=== PATIENT | female | born 1965 | race African-American/Black ===

== ENCOUNTER 2017-08-18 19:31 | Inpatient (IN) | payer MEDICARE ==
[~2017-08-18] VITALS: Ht 152.4 cm; Wt 53.1 kg
[~2017-08-18 19:31] MED LIST: ALBUTEROL0.63 MG/3; ASPIRIN EC81 MG PO; FAMOTIDINE20 MG PO; KEFLEX500 MG PO; LISINOPRIL10 MG PO; LOSARTAN POTAS100 MG PO; MEG40 PO; METOPROLOL SUCC25 MG PO; NORCO 10-325 T1 EACH; NORCO 7.5-3251 EACH PO; PREDNISONE10 MG PO; PREDNISONE20 MG PO; PROPRANOLOL HCL40 MG PO; SOMA350 MG PO; ULTRAM 50MG50 MG PO; ULTRAM50 MG PO
[2017-08-18] MEDS ORDERED: ONDANSETRON HCL INJ 2 MG/ML VIAL IV STA (20:16)
[2017-08-18] MEDS ORDERED: PANTOPRAZOLE 40 MG 10ML VIAL IV STA (20:16)
[2017-08-18] MEDS ORDERED: SODIUM CHLORIDE 0.9% 1000ML 1,000 ML IV STA (20:16)
[2017-08-18 20:53] LABS: INR 0.89; PROTHROMBIN TIME 12.5 seconds (11.9-14.5)
[2017-08-18 20:54] LABS: PARTIAL THROMBOPLASTIN TIME 28.2 seconds (23.8-35.5)
[2017-08-18 21:12] LABS: BILIRUBIN,URINE 1+ (NEGATIVE); KETONES,URINE 3+ (NEGATIVE); LEUKOCYTE ESTERASE ,URINE TRACE (NEGATIVE); NITRITE,URINE NEGATIVE (NEGATIVE); PROTEIN,URINE DIPSTICK 3+ (NEGATIVE); URINE UROBILINOGEN 1 mg/dL (0.2 - 1)
[2017-08-18 21:16] LABS: CLARITY,URINE CLOUDY (CLEAR); COLOR,URINE YELLOW (YELLOW)
[2017-08-18 21:17] LABS: THYROID STIMULATING HORMONE 1.213 uIU/mL (0.350-4.940)
[2017-08-18 21:22] LABS: BASOPHILS % 0.5 % (0.0-1.0); HEMATOCRIT 34.4 % (34.2-44.1); HEMOGLOBIN 10.5 g/dL (12.0-16.0); LYMPHOCYTES % 24.4 % (18.0-39.1); MEAN CORPUSCULAR HEMOGLOBIN 28.2 pg (28-32); MEAN CORPUSCULAR HGB CONC 30.5 g/dL (31-35); MEAN CORPUSCULAR VOLUME 92.5 fL (81-99); MONOCYTES # (AUTO) 0.3 (0.2-0.8); MONOCYTES % 5.9 % (4.4-11.3); NEUTROPHILS # (AUTO) 2.9 (2.1-6.9); NEUTROPHILS % 68.5 % (38.7-80.0); PLATELET COUNT 335 x10e3/uL (140-360); RED BLOOD COUNT 3.72 x10e6/uL (3.6-5.1); RED CELL DISTRIBUTION WIDTH 15.1 % (11.7-14.4)
--- NOTE | 2017-08-18 21:25 | Diagnostic Imaging Report ---
EXAM: CT ABDOMEN AND PELVIS without IV CONTRAST DATE: 08/18/2017 8:16 PM Time stamp on Exam: 2040 hours INDICATION: Lower back pain, bilateral flank pain COMPARISON: CT of the chest November 20, 2016. TECHNIQUE: The abdomen and pelvis were scanned using a multidetector helical scanner. Coronal and sagittal reformations were obtained. Renal stone protocol performed. IV Contrast: None Oral Contrast: None CTDIvol has been reviewed. It is below the limits set by the Radiation Protocol Committee (RPC). FINDINGS: LOWER THORAX: No consolidations LIVER: No masses BILIARY: The gallbladder is unremarkable. No ductal dilation. SPLEEN: No masses PANCREAS: No masses ADRENALS: No nodules RIGHT KIDNEY: No nephroureterolithiasis or hydronephrosis. LEFT KIDNEY: No nephroureterolithiasis or hydronephrosis. GI TRACT: No distention, wall thickening or evidence of obstruction. Normal appendix. VESSELS: Mild atherosclerotic changes without aneurysm. PERITONEUM/RETROPERITONEUM: No free air or fluid LYMPH NODES: Nonspecific subcentimeter retroperitoneal lymph nodes, predominantly on the left at the level of the kidney, nonspecific and partially visualized on prior CT of the chest. REPRODUCTIVE ORGANS: Unremarkable BLADDER: Collapsed SOFT TISSUES: Unremarkable BONES: No suspicious bone lesions. IMPRESSION: No nephroureterolithiasis or hydronephrosis. Signed by: Dr. Saumya Matute M.D. on 08/18/2017 9:21 PM
--- NOTE | 2017-08-18 21:26 | Diagnostic Imaging Report ---
EXAM: CHEST SINGLE (PORTABLE), AP 1 view DATE: 08/18/2017 8:16 PM Time stamp on exam: 2015 hours INDICATION: Chest pain COMPARISON: AP view of the chest study were 14/06/2015 FINDINGS: LINES/TUBES: None LUNGS: Linear scarring left lung base. PLEURA: No effusions or pneumothorax. HEART AND MEDIASTINUM: Normal size and contour. BONES AND SOFT TISSUES: No acute findings. IMPRESSION: No acute thoracic abnormality. Signed by: Dr. Saumya Matute M.D. on 08/18/2017 9:23 PM
[2017-08-18 21:34] LABS: EPITHELIAL CELLS,URINE MANY /LPF
[2017-08-18 21:35] LABS: BACTERIA,URINE MODERATE /HPF; RBC,URINE >50 /HPF (0-5); WBC,URINE (MAN) 21-50 /HPF (0-5)
[2017-08-18 21:44] LABS: ALANINE AMINOTRANSFERASE 8 IU/L (0-55); ALBUMIN/GLOBULIN RATIO 0.3 (0.8-2.0); ALKALINE PHOSPHATASE 69 IU/L (40-150); ANION GAP 23.7 mmol/L (8-16); BLOOD UREA NITROGEN 16 mg/dL (7-26); BUN/CREATININE RATIO 15 (6-25); CARBON DIOXIDE 20 mmol/L (22-29); CHLORIDE 101 mmol/L (98-107); CREATINE KINASE 17 IU/L (29-168); CREATININE, SERUM 1.09 mg/dL (0.57-1.11); EST GLOMERULAR FILTRATION RATE > 60 ML/MIN (60-); GLUCOSE 72 mg/dL (74-118); LIPASE 22 U/L (8-78); MAGNESIUM 1.4 MG/DL (1.3-2.1); POTASSIUM 3.7 mmol/L (3.5-5.1); SODIUM 141 mmol/L (136-145)
[2017-08-18 22:18] LABS: BAND NEUTROPHILS % (MANUAL) 1 %; LYMPHOCYTES % (MANUAL) 29 % (19-48); MONOCYTES % (MANUAL) 7 % (3.4-9.0); NEUTROPHILS % (MANUAL) 62 % (40-74)
[2017-08-18 22:19] LABS: PLATELET ESTIMATE ADEQUATE; PLATELET MORPHOLOGY COMMENT NORMAL; RBC MORPHOLOGY COMMENT NORMAL
[2017-08-18 23:27] LABS: BILIRUBIN,URINE NEGATIVE (NEGATIVE); CLARITY,URINE CLOUDY (CLEAR); COLOR,URINE YELLOW (YELLOW); KETONES,URINE 2+ (NEGATIVE); LEUKOCYTE ESTERASE ,URINE NEGATIVE (NEGATIVE); NITRITE,URINE NEGATIVE (NEGATIVE); PROTEIN,URINE DIPSTICK 3+ (NEGATIVE); URINE UROBILINOGEN 0.2 mg/dL (0.2 - 1)
[2017-08-18] MEDS: CEFTRIAXONE SOD 1 GM/NS 50 ML 50 ML IV SCH (23:33)
[2017-08-18] MEDS: DEXTROSE 5%/0.9% SOD CHL 1,000 ML IV SCH (23:33)
[2017-08-18 23:41] LABS: AMORPHOUS SEDIMENT,URINE MODERATE (FEW); BACTERIA,URINE MODERATE /HPF; EPITHELIAL CELLS,URINE FEW /LPF; HYALINE CASTS 0-1 (0-1); RBC,URINE >50 /HPF (0-5); WBC,URINE (MAN) 21-50 /HPF (0-5)
[2017-08-18] MEDS ORDERED: NITROFURANTOIN100 MG PO (23:57)
[2017-08-18] MEDS ORDERED: METOPROLOL TART25 MG PO (23:57)
[2017-08-18] MEDS ORDERED: ZOFRAN ODT4 MG PO (23:57)
[2017-08-18] MEDS ORDERED: ULTRAM50 MG PO (23:57)
[2017-08-19] VITALS (7 sets, daily range): BP systolic 105–131; BP diastolic 56–78
[2017-08-19] MEDS: HYDROMORPHONE 1MG/1ML INJ IV PRN ×4 (03:00→20:42)
[2017-08-19] MEDS: ONDANSETRON HCL INJ 2 MG/ML VIAL IV PRN ×4 (03:00→20:42)
[2017-08-19 06:46] LABS: BASOPHILS % 0.2 % (0.0-1.0); HEMATOCRIT 28.5 % (34.2-44.1); HEMOGLOBIN 8.7 g/dL (12.0-16.0); LYMPHOCYTES # (AUTO) 1.1 (1.0-3.2); LYMPHOCYTES % 26.1 % (18.0-39.1); MEAN CORPUSCULAR HEMOGLOBIN 28.5 pg (28-32); MEAN CORPUSCULAR HGB CONC 30.5 g/dL (31-35); MEAN CORPUSCULAR VOLUME 93.4 fL (81-99); MONOCYTES # (AUTO) 0.3 (0.2-0.8); MONOCYTES % 6.5 % (4.4-11.3); NEUTROPHILS # (AUTO) 2.7 (2.1-6.9); NEUTROPHILS % 66.7 % (38.7-80.0); PLATELET COUNT 290 x10e3/uL (140-360); RED BLOOD COUNT 3.05 x10e6/uL (3.6-5.1)
[2017-08-19] MEDS: DEXTROSE 5%/0.9% SOD CHL 1,000 ML IV SCH ×3 (07:00→20:41)
[2017-08-19 07:13] LABS: ALANINE AMINOTRANSFERASE 7 IU/L (0-55); ALBUMIN 1.7 g/dL (3.5-5.0); ALBUMIN/GLOBULIN RATIO 0.3 (0.8-2.0); ALKALINE PHOSPHATASE 54 IU/L (40-150); ANION GAP 12.9 mmol/L (8-16); BLOOD UREA NITROGEN 13 mg/dL (7-26); BUN/CREATININE RATIO 15 (6-25); CALCIUM 8.1 mg/dL (8.4-10.2); CARBON DIOXIDE 25 mmol/L (22-29); CHLORIDE 109 mmol/L (98-107); CREATINE KINASE 35 IU/L (29-168); CREATININE, SERUM 0.87 mg/dL (0.57-1.11); EST GLOMERULAR FILTRATION RATE > 60 ML/MIN (60-); GLUCOSE 116 mg/dL (74-118); POTASSIUM 3.9 mmol/L (3.5-5.1); SODIUM 143 mmol/L (136-145)
[2017-08-19] MEDS: CEFTRIAXONE SOD 1 GM/NS 50 ML 50 ML IV SCH (07:46)
[2017-08-19 07:53] LABS: CREATINE KINASE MB < 1.00 ng/mL (0-4.3); TROPONIN I < 0.05 ng/mL (0.0-0.40)
[2017-08-19 07:59] LABS: BAND NEUTROPHILS % (MANUAL) 4 %; LYMPHOCYTES % (MANUAL) 13 % (19-48); MONOCYTES % (MANUAL) 5 % (3.4-9.0); NEUTROPHILS % (MANUAL) 74 % (40-74)
[2017-08-19 08:00] LABS: ANISOCYTOSIS SLIGHT; HYPOCHROMASIA SLIGHT
[2017-08-19 08:01] LABS: PLATELET ESTIMATE ADEQUATE; PLATELET MORPHOLOGY COMMENT NORMAL; POIKILOCYTOSIS SLIGHT; RBC MORPHOLOGY COMMENT NORMAL
[2017-08-19] MEDS ORDERED: ONDANSETRON HCL 4 MG ORAL DISINTEGRATING TAB PO PRN (09:30)
--- NOTE | 2017-08-19 09:44 | Discharge Summary ---
NO DICTATION, LENGTH 0:1 Job#: [id number] RI
--- NOTE | 2017-08-19 10:02 | History and Physical ---
CHIEF COMPLAINT: Fever and sepsis. HISTORY: The patient is a 51-year-old female with lupus, pericarditis and previous chest discomfort, pleurisy and also has rheumatoid arthritis, on prednisone, and immunosuppressed. Had coronary stent placement a few years ago in 2009 and hypertension. The patient came in with fever and recurrent urinary tract infection. The patient also complained of increasing shortness of breath as well. She is stating that she is having symptoms going on for the past few days without any relief. The patient also has nausea and vomiting, and rapid heart rate. She was placed on antibiotics and admitted to the hospital for further evaluation. PAST MEDICAL HISTORY: Includes rheumatoid arthritis, lupus, previous pericarditis, lupus arthritis, recurrent urinary tract infection, immunosuppressed, coronary disease with previous stent in 2009, hypertension, chronic anemia. D and C. SOCIAL HISTORY: The patient does not smoke. She quit smoking in 2014. No alcohol consumption. ALLERGIES: MORPHINE. HOME MEDICATIONS: List is reviewed. REVIEW OF SYSTEMS: Increasing shortness of breath, abdominal pain, and epigastric discomfort. PHYSICAL EXAMINATION VITAL SIGNS: Temperature is 100.7, blood pressure 124/60, pulse rate 103, respirations 20. GENERAL: The patient is not in acute distress. She is awake. HEENT: Normocephalic, atraumatic and anicteric. NECK: Supple grossly. PULMONARY: Diminished breath sounds. CARDIOVASCULAR: Tachycardia. ABDOMEN: Soft. Tenderness. No distention. EXTREMITIES: No cyanosis or edema. NEUROLOGIC: No focal deficit. LABORATORY: Sodium is 141, potassium 3.7, chloride 101, bicarb 20, BUN 16, creatinine 1.09, glucose is 72. WBC is 4.2, hemoglobin 10.5 down to 8.7 with rehydration, and platelets are 290,000, and hematocrit is 28.5. Urinalysis with wbcs in the urine of 50, greater than 50 rbcs, trace leukocyte esterase, moderate bacteria. Cloudy urine. IMAGING: CT of the abdomen and pelvis with IV contrast showed no hydronephrosis. IMPRESSION 1. Sepsis without shock. 2. Urinary tract infection. 3. Immunosuppressed with lupus, on immunosuppressed medication. 4. Rheumatoid arthritis. PLAN: IV fluids. Consultation with Dr. Us. IV antibiotics. Obtain a CT of the chest with IV contrast to check for PE. Will continue with home medications. Will continue with pain medication. DVT prophylaxis. Stool for occult. Job#: [id number] RI
[2017-08-19] MEDS: METOPROLOL TARTRATE 25 MG TAB PO SCH (11:04)
[2017-08-19] MEDS: CARISOPRODOL 350 MG TAB PO PRN (11:04)
[2017-08-19] MEDS: TRAMADOL HCL 50 MG TAB PO PRN (11:04)
[2017-08-19] MEDS: CEFEPIME 1GM/NS 0.9% 50 ML 50 ML IV SCH ×2 (11:04→22:15)
[2017-08-19] MEDS ORDERED: IOPAMIDOL 370 MG/ML 200 ML INFUS..BTL INJ ONE (15:17)
[2017-08-19] MEDS ORDERED: SODIUM CHLORIDE 0.9% 50ML 50 ML ONE (15:17)
[2017-08-19 15:57] LABS: CREATINE KINASE MB 0.4 ng/mL (0.00-5.00); TROPONIN I 0.029 ng/mL (0-0.300)
[2017-08-19] MEDS: FAMOTIDINE 20 MG TAB PO SCH (16:49)
--- NOTE | 2017-08-19 17:20 | Consultation ---
DATE OF CONSULTATION: August 19, 2017 INFECTIOUS DISEASE CONSULTATION REASON FOR CONSULTATION: Abdominal pain, fever and chills. HISTORY OF PRESENT ILLNESS: This patient, who is a 51-year-old female, history of lupus, history of pericarditis, history of pleurisy and rheumatoid arthritis, is on prednisone, had coronary artery stent placement a few years ago, history of hypertension. Comes in with fever, chills, abdominal pain. She has history of UTI. The patient says she has not been feeling well for the last few days with abdominal pain diffuse, feverish, some urgency. The patient was admitted. She said she is feeling slightly better, but she continues to feel bad in general. PAST MEDICAL HISTORY: Rheumatoid arthritis, lupus, pericarditis, recurrent UTI, immunosuppression, coronary artery disease status post stent, hypertension, chronic anemia. PAST SURGICAL HISTORY: Cardiac stent, D\T\C. ALLERGIES: NKA. SOCIAL HISTORY: There is no smoking, drug abuse, alcohol abuse. FAMILY HISTORY: Hypertension. REVIEW OF SYSTEMS: HEENT: There is no headache or visual changes. GI: There is nausea and abdominal pain but no diarrhea. JOINTS: There is no acute pain in her joints. : There is no urgency or frequency at the present time although she says there was some before she came, and she says her urine was dark. LABORATORY DATA: White count 4.02, hemoglobin 8.7. Sodium 143, potassium 3.9, creatinine 0.87. Blood cultures, urine cultures still pending. CAT scan of the abdomen and pelvis was done, showed no nephrolithiasis. IMPRESSION: Fever, chills in a patient immunocompromised. CT does not show hydronephrosis. She is currently on cefepime. It could be UTI. Will see how does she do with that. Await blood cultures, urine cultures. Other possibilities for her fever could be if her lupus is acting up, but I think we need to rule out an infection at the present time. Will follow with you. Thank you for asking me to see this patient. Job#: [id number] EV
--- NOTE | 2017-08-19 17:46 | Diagnostic Imaging Report ---
EXAM: CT Chest WITH contrast 08/19/2017 9:29 AM INDICATION: Chest pain. COMPARISON: 11/22/2016. TECHNIQUE: Chest was scanned utilizing a multidetector helical scanner from the lung apex through the level of the adrenal glands without administration of IV contrast. Coronal and sagittal reformations were obtained. Routine protocol was performed. IV CONTRAST: 100 mL of Isovue-370. RADIATION DOSE: Total DLP: 362.92 mGy*cm Estimated effective dose: (DLP x 0.014 x size factor) mSv COMPLICATIONS: None FINDINGS: LINES/ TUBES: None. LUNGS AND AIRWAYS: Bilateral upper lobe paraseptal emphysematous changes again observed. Punctate subpleural noncalcified nodule in the right middle lobe laterally on image 47 series 3, unchanged. Punctate noncalcified subpleural nodule in the posterior right lower lobe on image 59, unchanged. Posterior lower lobe irregular pleural parenchymal densities again observed, suggestive of pleural parenchymal scarring. No focal consolidation or masses.. PLEURA: Mild biapical pleural-parenchymal scarring. No pleural effusion or pneumothorax. HEART AND MEDIASTINUM: The thyroid gland is normal. Mildly enlarged bilateral axillary lymph nodes again observed, the largest on the right measuring 1.2 cm in short axis on image 40 series 2, unchanged. There are also mildly enlarged subcarinal lymph nodes, the largest measuring 1.9 x 1.4 cm on image 43 series 2, also unchanged. The heart is moderately enlarged. There is no pericardial effusion. UPPER ABDOMEN: Limited non-contrast views of the upper abdomen show multiple punctate splenic granulomata. Mildly prominent gastrohepatic lymph nodes again observed, the largest measuring 0.6 cm in short axis on image 106 series 2. Small low-attenuation lesion in the right hepatic lobe measures 0.5 cm on image 109, suggestive of a small cyst. Mild atherosclerotic changes of the visualized proximal abdominal aorta. The adrenal glands are normal. BONES: No acute osseous abnormality. SOFT TISSUES: Unremarkable. IMPRESSION: 1. Cardiomegaly. No acute thoracic abnormality. 2. Bilateral upper lobe paraseptal emphysematous changes, stable. 3. Mild bilateral axillary and mediastinal lymphadenopathy, unchanged. Signed by: Dr. Ayala Townsend M.D. on 08/19/2017 5:43 PM
[2017-08-20] VITALS: BP 106/51
[2017-08-20] MEDS: CARISOPRODOL 350 MG TAB PO PRN (00:22)
[2017-08-20] MEDS: TRAMADOL HCL 50 MG TAB PO PRN (00:22)
[2017-08-20 04:00] VITALS: BP 115/57
[2017-08-20] MEDS: HYDROMORPHONE 1MG/1ML INJ IV PRN (06:35)
[2017-08-20] MEDS: ONDANSETRON HCL INJ 2 MG/ML VIAL IV PRN ×2 (06:35→15:52)
[2017-08-20 06:56] LABS: BASOPHILS % 0.3 % (0.0-1.0); HEMATOCRIT 26.2 % (34.2-44.1); HEMOGLOBIN 8.2 g/dL (12.0-16.0); LYMPHOCYTES # (AUTO) 0.8 (1.0-3.2); LYMPHOCYTES % 26.3 % (18.0-39.1); MEAN CORPUSCULAR HEMOGLOBIN 29.2 pg (28-32); MEAN CORPUSCULAR HGB CONC 31.3 g/dL (31-35); MEAN CORPUSCULAR VOLUME 93.2 fL (81-99); MONOCYTES # (AUTO) 0.2 (0.2-0.8); MONOCYTES % 6.5 % (4.4-11.3); NEUTROPHILS # (AUTO) 2.1 (2.1-6.9); NEUTROPHILS % 66.6 % (38.7-80.0); PLATELET COUNT 246 x10e3/uL (140-360); RED BLOOD COUNT 2.81 x10e6/uL (3.6-5.1); RED CELL DISTRIBUTION WIDTH 15.3 % (11.7-14.4)
[2017-08-20] MEDS: DEXTROSE 5%/0.9% SOD CHL 1,000 ML IV SCH ×2 (07:00→10:25)
[2017-08-20 07:19] LABS: % IRON SATURATION 12 % (15-50); ALANINE AMINOTRANSFERASE < 6 IU/L (0-55); ALBUMIN 1.4 g/dL (3.5-5.0); ALBUMIN/GLOBULIN RATIO 0.3 (0.8-2.0); ALKALINE PHOSPHATASE 49 IU/L (40-150); ANION GAP 9.3 mmol/L (8-16); BLOOD UREA NITROGEN 6 mg/dL (7-26); BUN/CREATININE RATIO 9 (6-25); CALCIUM 7.9 mg/dL (8.4-10.2); CARBON DIOXIDE 26 mmol/L (22-29); CHLORIDE 111 mmol/L (98-107); EST GLOMERULAR FILTRATION RATE > 60 ML/MIN (60-); GLUCOSE 105 mg/dL (74-118); IRON 17 ug/dL (50-170); POTASSIUM 3.3 mmol/L (3.5-5.1); SODIUM 143 mmol/L (136-145); TOTAL IRON BINDING CAPACITY 140 ug/dL (261-478); TRANSFERRIN 100 mg/dL (180-382)
[2017-08-20 07:39] LABS: THYROID STIMULATING HORMONE 1.038 uIU/mL (0.350-4.940)
[2017-08-20 07:49] VITALS: BP 111/64
[2017-08-20 08:15] LABS: ANISOCYTOSIS SLIGHT; HYPOCHROMASIA SLIGHT; LYMPHOCYTES % (MANUAL) 23 % (19-48); MONOCYTES % (MANUAL) 7 % (3.4-9.0); NEUTROPHILS % (MANUAL) 68 % (40-74); PLATELET ESTIMATE ADEQUATE; PLATELET MORPHOLOGY COMMENT FEW LARGE; RBC MORPHOLOGY COMMENT NORMAL
[2017-08-20] MEDS: FAMOTIDINE 20 MG TAB PO SCH ×2 (08:22→16:38)
[2017-08-20] MEDS: METOPROLOL TARTRATE 25 MG TAB PO SCH (08:22)
[2017-08-20] MEDS ORDERED: POTASSIUM CHLORIDE 20 MEQ TAB CR PO NR (10:30)
--- NOTE | 2017-08-20 10:51 | Consultation ---
DATE OF CONSULTATION: August 20, 2017 CLINICAL HISTORY: This is a 51-year-old black woman known to me from previous evaluation. Referred by Dr. Demetrio Hawkins for evaluation of recurrent pleuritic chest pains. This patient suffers from systemic lupus and rheumatoid arthritis, chronically treated with prednisone. She has recurrent urinary tract infections. Was treated in [place] on multiple occasions, including once 2 months ago when she became weak in a store and was hospitalized there. Apparently, she was discharged with the diagnosis of urinary tract infection. She has difficulty with transportation, and has had trouble making her office appointments. Over the past 1-1/2 weeks, she has had a low-grade temperature, nausea and vomiting. Eventually, decided to come to our emergency room where she was again hospitalized with the diagnosis of urinary tract infection. Culture thus far has been negative. She admits to pleuritic pains. On examination, she has epigastric tenderness. PAST MEDICAL HISTORY: Remarkable for hypertension, diminished TSH and elevated D-dimer. PERSONAL/SOCIAL HISTORY: She was a long time cigarette smoker. Stopped smoking approximately in 2015. Drinks occasionally. Used to work in a [email or web address]. Has not worked for the past 18 years due to lupus disability and since the of her daughter. FAMILY HISTORY: Father from prostate cancer. Mother from a motor vehicle accident and pneumonia. Brother from myocardial infarction. Sister from lung cancer. Three brothers alive and well with hypertension. PAST SURGICAL HISTORY: Oral surgery, D and C are, as well as coronary stenting. MEDICATIONS: In the past included prednisone, Plaquenil, lisinopril, tramadol, Soma, and hydrocodone. REVIEW OF SYSTEMS: Noncontributory. PHYSICAL EXAMINATION GENERAL: She is thin, alert and coherent. Older than her stated age. VITALS: Otherwise normal. CARDIAC: Jugular veins were not distended. S1 and S2 were regular. There is no appreciable murmur. LUNGS: Clear. ABDOMEN: Soft. Bowel sounds are present. There is significant tenderness. No rebound or guarding. EXTREMITIES: Show no cyanosis, clubbing or edema. LABORATORY STUDIES: The sodium is 143, potassium 3.3, chloride 111, bicarb 26, BUN 6, creatinine 0.7, glucose 105. White count is 3000, hemoglobin 8.2 and platelet count 246,000. INR is 0.89. IMPRESSION 1. Pleuritic chest and abdominal pains: Consider pleural pericarditis, as well as cholelithiasis and cholecystitis. 2. Chronic pain with chronic pain medication usage. 3. History of coronary artery disease with coronary stents. 4. History of resting tachycardia with diminished TSH. 5. History of recurrent urinary tract infection. 6. Systemic lupus rheumatoid arthritis, previously on prednisone and Plaquenil. 7. History of chronic hypotension. 8. Anemia: Hemoglobin 8.2. 9. History of cigarette smoking, possible underlying chronic obstructive pulmonary disease. 10. Moderately severe tricuspid regurgitation with mild pulmonary hypertension: Pulmonary artery systolic pressure in the range of 42 mmHg. 11. History of preserved left ventricular function: Ejection fraction in the range of 70%. RECOMMENDATIONS: Review echocardiogram. Apparently, has already been done. Symptomatic management. Consider gallbladder workup. Job#: [id number] RI cc:MD JOE HE MD
[2017-08-20] MEDS: CEFTRIAXONE SOD 1 GM/NS 50 ML 50 ML IV SCH (10:54)
[2017-08-20] MEDS ORDERED: SINCALIDE 3 MCG/VIAL INJ ONE (11:18)
[2017-08-20 11:24] LABS: FOLATE 16.6 ng/mL (7.0-15.4)
[2017-08-20 11:29] VITALS: BP 133/75
[2017-08-20 16:10] VITALS: BP 142/67
[2017-08-20] MEDS: METHYLPREDNISOLONE SOD SUCC 40 MG/ML VIAL IV SCH (16:38)
[2017-08-20] MEDS: VANCOMYCIN 1GM/NS 250 ML 250 ML IV SCH (16:38)
--- NOTE | 2017-08-20 17:35 | Consultation ---
DATE OF CONSULTATION: August 20, 2017 Amber Abbott is a 51-year-old black female referred to me for evaluation of anemia. No history of hematochezia, melena, hematuria, hematochezia or hemoptysis. HISTORY OF PAST ILLNESSES: History of systemic lupus erythematosus. History of rheumatoid arthritis. History of recurrent UTI. History of hypertension. History of chronic pain syndrome. History of coronary artery disease with stenting. History of COPD. SOCIAL HISTORY: History of smoking in the past. FAMILY HISTORY: Noncontributory, except for the father who of prostate cancer. ALLERGIES: REPORTED NONE. MEDICATIONS: At this time. 1. Cefepime. 2. Ceftriaxone. 3. Vancomycin. 4. Soma. 5. Pepcid. 6. Hydromorphone. 7. Methylprednisolone. 8. Metoprolol. 9. Ondansetron. 10. Potassium. 11. Tramadol. REVIEW OF SYSTEMS: HEENT: Normal. CARDIAC: History of hypertension. History of coronary stenting. RESPIRATORY: History of COPD. GI: Normal. : Multiple bladder infections. MUSCULOSKELETAL: History of rheumatoid arthritis, history of systemic lupus erythematosus. NEUROENDOCRINE: Essentially normal. PHYSICAL EXAMINATION: GENERAL: Moderately built female, very anemic. NECK: No palpable adenopathy. HEART: Within normal limits. LUNGS: Show diminished breath sounds throughout. ABDOMEN: Obese. No hepatosplenomegaly. RECTA AND VAGINAL EXAM: Deferred. CENTRAL NERVOUS SYSTEM: Essentially normal. EXTREMITIES: Shows rheumatoid arthritis features. LABORATORY DATA: CBC on 08/18 showed a hemoglobin of 10.5, white count of 4200, platelets 335,000. Hemoglobin after hydration dropped on 08/19 to 8.7, today is 8.2 with a white count of 3000 and platelets of 246,000. MCV normal at 93.2. MCHC normal at 31.3. RDW slightly high at 15.3. Chemistry shows a sodium of 141, potassium 3.7, chloride 101, CO2 20. BUN 16, creatinine 1.0, glucose 72, calcium 9.0. Total protein 8.3. Albumin 2.0. Globulin is high at 6.3; however, after hydration the total protein dropped down to 6.1, albumin to 1.4, globulin 4.7. B12 level more than 2000. The potassium today is 3.3. IMAGING: The patient had a CT of the chest which showed the patient to have cardiomegaly, bilateral upper lobe emphysema, mild bilateral axillary and mediastinal adenopathy which is unchanged from 11/22/2016. CT of the abdomen is also reported essentially negative. I IMPRESSION: 1. History of systemic lupus erythematosus. 2. History of rheumatoid arthritis. 3. History of recurrent urinary tract infections. 4. Hypertension. 5. Chronic pain syndrome. 6. Coronary artery disease with stenting. 7. Chronic obstructive pulmonary disease. 8. History of pulmonary hypertension. 9. Tricuspid regurgitation, according to the notes of Dr. Carson White. 10. Anemia of chronic disease. 11. Neutropenia. 12. Hypokalemia. 13. Hypoproteinemia. 14. Hypoalbuminemia. 15. 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 16. Active urinary tract infection at the present time. PLAN, COMMENTS AND SUGGESTIONS: Suggest quantitation of immunoglobulins; however, I suspect this is going to be polyclonal gammopathy because of both rheumatoid arthritis and also because of the systemic lupus erythematosus. I will confine myself to hematology. Blood transfusion if the hemoglobin drops down to 7 since this is anemia of chronic disease. Thank you very much for allowing me to participate in management of this patient. Job#: [id number] cc:NIESHA LOUISE MD cc:JOE ESPINOZA MD cc:CARSON WHITE MD
--- NOTE | 2017-08-20 18:26 | Diagnostic Imaging Report ---
Hepatobiliary Scan with Gallbladder Ejection Fraction Clinical information: 51 F with RUQ abdominal pain Report: Following intravenous administration of 6.5 millicuries of Tc-99m mebrofenin, dynamic images of the abdomen in the anterior projection were obtained through 40 minutes. Sincalide (CCK analog) 1.0 micrograms was administered intravenously over 30 minutes with additional imaging for determination of gallbladder ejection fraction. Perfusion to the liver is normal. Extraction of tracer from the blood pool by the liver parenchyma is normal. Tracer is seen promptly within the biliary tract. The gallbladder begins to fill by 35 minutes post-injection of tracer and fills adequately. Tracer is seen in the small bowel by 12 minutes. The gallbladder ejection fraction with administration of sincalide is 85% (normal greater than 40%). Impression: 1. Filling of the gallbladder excludes the diagnosis of acute cystic duct obstruction/acute cholecystitis. 2. Normal gallbladder ejection fraction of 85% does not support the clinical diagnosis of chronic cholecystitis/gallbladder dyskinesia. Signed by: Dr. Pat Herbert M.D. on 08/20/2017 6:23 PM
[2017-08-20 20:00] VITALS: BP 136/67
[2017-08-21] VITALS: BP 160/85
[2017-08-21] MEDS: DEXTROSE 5%/0.9% SOD CHL 1,000 ML IV SCH ×2 (03:19→21:29)
[2017-08-21 04:00] VITALS: BP 128/69
[2017-08-21 06:43] LABS: BASOPHILS % 0.4 % (0.0-1.0); HEMATOCRIT 26.3 % (34.2-44.1); LYMPHOCYTES # (AUTO) 0.9 (1.0-3.2); LYMPHOCYTES % 40.5 % (18.0-39.1); MEAN CORPUSCULAR HEMOGLOBIN 28.2 pg (28-32); MEAN CORPUSCULAR HGB CONC 30.4 g/dL (31-35); MEAN CORPUSCULAR VOLUME 92.6 fL (81-99); MONOCYTES # (AUTO) 0.3 (0.2-0.8); MONOCYTES % 11.9 % (4.4-11.3); NEUTROPHILS # (AUTO) 1.1 (2.1-6.9); NEUTROPHILS % 46.8 % (38.7-80.0); PLATELET COUNT 258 x10e3/uL (140-360); RED BLOOD COUNT 2.84 x10e6/uL (3.6-5.1); RED CELL DISTRIBUTION WIDTH 15.1 % (11.7-14.4)
[2017-08-21 07:07] LABS: ALBUMIN 1.4 g/dL (3.5-5.0); ALBUMIN/GLOBULIN RATIO 0.3 (0.8-2.0); ALKALINE PHOSPHATASE 52 IU/L (40-150); ANION GAP 10.3 mmol/L (8-16); BLOOD UREA NITROGEN 6 mg/dL (7-26); BUN/CREATININE RATIO 9 (6-25); CALCIUM 7.9 mg/dL (8.4-10.2); CARBON DIOXIDE 24 mmol/L (22-29); CHLORIDE 113 mmol/L (98-107); CREATININE, SERUM 0.68 mg/dL (0.57-1.11); EST GLOMERULAR FILTRATION RATE > 60 ML/MIN (60-); GLUCOSE 115 mg/dL (74-118); POTASSIUM 3.3 mmol/L (3.5-5.1); SODIUM 144 mmol/L (136-145)
[2017-08-21 07:12] LABS: ALANINE AMINOTRANSFERASE < 6 IU/L (0-55)
[2017-08-21 08:00] VITALS: BP 142/78
[2017-08-21] MEDS: FAMOTIDINE 20 MG TAB PO SCH ×2 (08:50→16:55)
[2017-08-21] MEDS: CEFTRIAXONE SOD 1 GM/NS 50 ML 50 ML IV SCH (09:59)
[2017-08-21] MEDS: METOPROLOL TARTRATE 25 MG TAB PO SCH (09:59)
[2017-08-21] MEDS: METHYLPREDNISOLONE SOD SUCC 40 MG/ML VIAL IV SCH ×2 (09:59→16:55)
[2017-08-21 12:00] VITALS: BP 158/82
--- NOTE | 2017-08-21 13:07 | Cardiology Report ---
ECHOCARDIOGRAM M-MODE: Normal chamber sizes. Left ventricular hypertrophy. Normal contractility. Normal mitral and aortic valves. No pericardial effusion. SECTOR SCAN: Normal chamber sizes. Left ventricular hypertrophy. Normal contractility. Normal mitral, aortic and tricuspid valves. No pericardial effusion. CARDIAC DOPPLER STUDY WITH COLOR: Two plus mitral regurgitation. Three plus tricuspid regurgitation. Trace pulmonic regurgitation. CONCLUSIONS 1. Moderate mitral regurgitation. 2. Moderate to moderately severe tricuspid regurgitation without significant pulmonary hypertension. Pulmonary artery systolic pressure estimated at 36 mmHg. 3. Left ventricular hypertrophy with ejection fraction of approximately 55%. 4. Trace pulmonic regurgitation. Job#: [id number] RI cc:NIESHA LOUISE MD
[2017-08-21 16:00] VITALS: BP 110/56
[2017-08-21] MEDS: VANCOMYCIN 1GM/NS 250 ML 250 ML IV SCH (16:55)
[2017-08-21 20:00] VITALS: BP 184/79
[2017-08-21] MEDS: TRAMADOL HCL 50 MG TAB PO PRN (22:15)
[2017-08-21] MEDS: CARISOPRODOL 350 MG TAB PO PRN (22:56)
[2017-08-22] VITALS: BP 145/67
[2017-08-22 04:00] VITALS: BP 171/75
[2017-08-22 08:05] VITALS: BP 161/77
[2017-08-22] MEDS: FAMOTIDINE 20 MG TAB PO SCH ×2 (08:30→17:30)
[2017-08-22] MEDS: METHYLPREDNISOLONE SOD SUCC 40 MG/ML VIAL IV SCH ×2 (09:34→17:41)
[2017-08-22] MEDS: METOPROLOL TARTRATE 25 MG TAB PO SCH (09:35)
[2017-08-22] MEDS: CEFTRIAXONE SOD 1 GM/NS 50 ML 50 ML IV SCH (09:35)
[2017-08-22 12:00] VITALS: BP 137/78
[2017-08-22] MEDS ORDERED: POTASSIUM CHLORIDE 20 MEQ TAB CR PO NR ×2 (12:45→19:15)
[2017-08-22 16:00] VITALS: BP 181/79
[2017-08-22] MEDS: DEXTROSE 5%/0.9% SOD CHL 1,000 ML IV SCH (16:52)
[2017-08-22] MEDS: VANCOMYCIN 1GM/NS 250 ML 250 ML IV SCH (17:41)
[2017-08-22 20:00] VITALS: BP 175/83
[2017-08-22] MEDS: CARISOPRODOL 350 MG TAB PO PRN (20:22)
[2017-08-23] VITALS: BP 136/81
[2017-08-23] MEDS: DEXTROSE 5%/0.9% SOD CHL 1,000 ML IV SCH (00:15)
[2017-08-23 04:00] VITALS: BP 158/80
[2017-08-23] MEDS: FAMOTIDINE 20 MG TAB PO SCH ×3 (06:09→17:29)
[2017-08-23 07:57] VITALS: BP 177/81
[2017-08-23] MEDS: METOPROLOL TARTRATE 25 MG TAB PO SCH (09:00)
[2017-08-23] MEDS ORDERED: PREDNISONE 20 MG TAB PO SCH (09:00)
[2017-08-23] MEDS: CEFTRIAXONE SOD 1 GM/NS 50 ML 50 ML IV SCH (10:30)
[2017-08-23 10:35] LABS: BASOPHILS % 0.1 % (0.0-1.0); HEMATOCRIT 26.4 % (34.2-44.1); HEMOGLOBIN 8.2 g/dL (12.0-16.0); LYMPHOCYTES # (AUTO) 0.7 (1.0-3.2); LYMPHOCYTES % 10.7 % (18.0-39.1); MEAN CORPUSCULAR HEMOGLOBIN 28.7 pg (28-32); MEAN CORPUSCULAR HGB CONC 31.1 g/dL (31-35); MEAN CORPUSCULAR VOLUME 92.3 fL (81-99); MONOCYTES # (AUTO) 0.5 (0.2-0.8); MONOCYTES % 6.8 % (4.4-11.3); NEUTROPHILS # (AUTO) 5.5 (2.1-6.9); PLATELET COUNT 311 x10e3/uL (140-360); RED BLOOD COUNT 2.86 x10e6/uL (3.6-5.1); RED CELL DISTRIBUTION WIDTH 15.4 % (11.7-14.4)
[2017-08-23 11:00] LABS: ANION GAP 12.2 mmol/L (8-16); BLOOD UREA NITROGEN 11 mg/dL (7-26); BUN/CREATININE RATIO 19 (6-25); CALCIUM 7.9 mg/dL (8.4-10.2); CARBON DIOXIDE 24 mmol/L (22-29); CHLORIDE 111 mmol/L (98-107); CREATININE, SERUM 0.57 mg/dL (0.57-1.11); EST GLOMERULAR FILTRATION RATE > 60 ML/MIN (60-); GLUCOSE 130 mg/dL (74-118); POTASSIUM 3.2 mmol/L (3.5-5.1); SODIUM 144 mmol/L (136-145)
[2017-08-23] MEDS: PREDNISONE 20 MG TAB PO SCH (11:22)
[2017-08-23] MEDS: CARISOPRODOL 350 MG TAB PO PRN ×2 (11:23→23:49)
[2017-08-23 12:02] VITALS: BP 170/71
[2017-08-23 16:45] VITALS: BP 183/79
[2017-08-23] MEDS ORDERED: POTASSIUM CHLORIDE 10 MEQ TABCR PO ONE (17:30)
[2017-08-23] MEDS: VANCOMYCIN 1GM/NS 250 ML 250 ML IV SCH (17:58)
[2017-08-23 20:00] VITALS: BP 183/84
[2017-08-23] MEDS: TRAMADOL HCL 50 MG TAB PO PRN (21:00)
[2017-08-24] VITALS (7 sets, daily range): BP systolic 158–196; BP diastolic 75–86
[2017-08-24] MEDS: FAMOTIDINE 20 MG TAB PO SCH ×2 (06:01→16:31)
[2017-08-24 07:00] LABS: BASOPHILS % 0.2 % (0.0-1.0); HEMATOCRIT 26.4 % (34.2-44.1); HEMOGLOBIN 8.1 g/dL (12.0-16.0); LYMPHOCYTES # (AUTO) 1.2 (1.0-3.2); LYMPHOCYTES % 22.5 % (18.0-39.1); MEAN CORPUSCULAR HEMOGLOBIN 28.4 pg (28-32); MEAN CORPUSCULAR HGB CONC 30.7 g/dL (31-35); MEAN CORPUSCULAR VOLUME 92.6 fL (81-99); MONOCYTES # (AUTO) 0.6 (0.2-0.8); MONOCYTES % 10.3 % (4.4-11.3); NEUTROPHILS # (AUTO) 3.6 (2.1-6.9); NEUTROPHILS % 65.7 % (38.7-80.0); PLATELET COUNT 298 x10e3/uL (140-360); RED BLOOD COUNT 2.85 x10e6/uL (3.6-5.1); RED CELL DISTRIBUTION WIDTH 15.6 % (11.7-14.4)
[2017-08-24 07:23] LABS: ANION GAP 10.5 mmol/L (8-16); BLOOD UREA NITROGEN 19 mg/dL (7-26); BUN/CREATININE RATIO 25 (6-25); CALCIUM 7.7 mg/dL (8.4-10.2); CARBON DIOXIDE 27 mmol/L (22-29); CHLORIDE 110 mmol/L (98-107); CREATININE, SERUM 0.77 mg/dL (0.57-1.11); EST GLOMERULAR FILTRATION RATE > 60 ML/MIN (60-); GLUCOSE 115 mg/dL (74-118); POTASSIUM 3.5 mmol/L (3.5-5.1); SODIUM 144 mmol/L (136-145)
[2017-08-24] MEDS: PREDNISONE 20 MG TAB PO SCH (08:33)
[2017-08-24] MEDS: METOPROLOL TARTRATE 25 MG TAB PO SCH (08:33)
[2017-08-24] MEDS: TRAMADOL HCL 50 MG TAB PO PRN (09:00)
[2017-08-24] MEDS: CEFTRIAXONE SOD 1 GM/NS 50 ML 50 ML IV SCH (10:22)
[2017-08-24] MEDS: CARISOPRODOL 350 MG TAB PO PRN ×2 (14:05→20:49)
[2017-08-24] MEDS: VANCOMYCIN 1GM/NS 250 ML 250 ML IV SCH (16:31)
[2017-08-25] VITALS (7 sets, daily range): BP systolic 147–190; BP diastolic 66–99
[2017-08-25] MEDS: METOPROLOL TARTRATE 25 MG TAB PO SCH (05:38)
[2017-08-25] MEDS: FAMOTIDINE 20 MG TAB PO SCH ×2 (09:28→16:24)
[2017-08-25] MEDS: PREDNISONE 20 MG TAB PO SCH (09:28)
[2017-08-25] MEDS: TRAMADOL HCL 50 MG TAB PO PRN ×2 (09:49→17:58)
[2017-08-25] MEDS: CEFTRIAXONE SOD 1 GM/NS 50 ML 50 ML IV SCH (09:49)
[2017-08-25] MEDS ORDERED: POTASSIUM CHLORIDE 20 MEQ TAB CR PO ONE (11:20)
[2017-08-25] MEDS: VANCOMYCIN 1GM/NS 250 ML 250 ML IV SCH (16:24)
[2017-08-25] MEDS: CARISOPRODOL 350 MG TAB PO PRN (23:16)
[2017-08-26] VITALS: BP 201/84
[2017-08-26 04:00] VITALS: BP 194/79
[2017-08-26] MEDS: METOPROLOL TARTRATE 25 MG TAB PO SCH (06:32)
[2017-08-26 07:27] LABS: ANION GAP 12.3 mmol/L (8-16); BLOOD UREA NITROGEN 21 mg/dL (7-26); BUN/CREATININE RATIO 30 (6-25); CARBON DIOXIDE 28 mmol/L (22-29); CHLORIDE 107 mmol/L (98-107); CREATININE, SERUM 0.69 mg/dL (0.57-1.11); EST GLOMERULAR FILTRATION RATE > 60 ML/MIN (60-); GLUCOSE 74 mg/dL (74-118); POTASSIUM 3.3 mmol/L (3.5-5.1); SODIUM 144 mmol/L (136-145)
[2017-08-26 08:44] VITALS: BP 187/83
[2017-08-26] MEDS: FAMOTIDINE 20 MG TAB PO SCH (08:58)
[2017-08-26] MEDS: PREDNISONE 20 MG TAB PO SCH (08:58)
[2017-08-26] MEDS: CEFTRIAXONE SOD 1 GM/NS 50 ML 50 ML IV SCH (08:58)
[2017-08-26] MEDS ORDERED: NIFEDIPINE CR 30 MG TAB PO ONE (09:45)
[2017-08-26] MEDS ORDERED: POTASSIUM CHLORIDE 20 MEQ TAB CR PO ONE (09:45)
[2017-08-26] MEDS ORDERED: NIFEDIPINE ER30 M1 PO (10:01)
[2017-08-26] MEDS ORDERED: ULTRAM 50MG50 MG PO (10:01)
[2017-08-26] MEDS ORDERED: FLAGYL250 MG PO (10:02)
[2017-08-26] MEDS ORDERED: LEVAQUIN500 MG PO (10:02)
[2017-08-26] MEDS ORDERED: PREDNISONE20 MG PO (10:03)
[2017-08-26 12:00] VITALS: BP 145/64
[2017-08-26] MEDS: CARISOPRODOL 350 MG TAB PO PRN (15:34)
[2017-08-26 16:00] VITALS: BP 133/63
--- NOTE | 2017-10-23 23:47 | Discharge Summary ---
CONSULTANTS 1. Dr. Violette Us 2. Dr. Valarie Bee 3. Dr. Roman Cavazos FINAL DIAGNOSES 1. Sepsis with shock associated with urinary tract infection secondary to also immunosuppressive state with lupus. 2. Immunosuppressive state with lupus and rheumatoid arthritis. 3. Fever/leukopenia, resolved. 4. Anemia chronic of disease. 5. Chest pain persistent with normal echocardiogram with ejection fraction of 60% with history of coronary artery disease with stent. 6. Chronic joint pain. SUMMARY: This is a 51-year-old female with extensive rheumatologic disorder on immunosuppressive medication. The patient has baseline rheumatoid arthritis and lupus. Came in with sepsis with shock. Patient with low blood pressure and fever and dehydration. The patient was admitted. She was with recurrent urinary tract infection. She also has urinary bladder infection. IV fluid given. Consultation with Dr. Us, IV antibiotics. CT of the chest with IV contrast without any pulmonary embolism. The patient's home medication was continued and DVT prophylaxis. The patient was admitted. On history, patient with history of cardiac stent. The cardiac enzyme was negative. She was seen by Dr. Roman Cavazos cardiology consultation. The patient has normal EF on echocardiogram. No further indication of cardiac workup needed. Patient has pleuritic chest pain. Consider multiple workup done. Workup there showed no significant finding to indicate pericarditis. Her HIDA scan was negative. Antibiotics were continued. Her platelet was low consistent with infection. Patient was seen by Dr. Valarie Bee. Patient had multiple workup done. Hemoglobin and hematocrit were stable. Hemoglobin was 8 and there was no blood transfusion needed unless it dropped down below [address] Bee. Patient did better. Her infection improved. Fever resolved. Blood pressure stabilized. Blood culture came back to be micrococcus bacteremia. Patient's fever resolved. Recommendations for the patient to go home by Dr. Us, would add oral antibiotics. Patient to continue with Levaquin and Flagyl orally for 14 days and along with prednisone. 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 Patient was stable. Patient was discharged home in stable condition to closely follow up monitoring. Prescriptions and medication reconciliation was done prior to discharge. Job#: [id number] CQ
== END 2017-08-26 19:21 | disposition home or self-care (01) | DRG 871 ==
LOC: ER 19:31 → ERHOLD 23:08 → MED/SURG3 23:41 → OBSVTOIN 08-19 09:32
PROVIDERS: ADMIT Internal Medicine; ATTEND Internal Medicine
DX: A41.9 Sepsis, unspecified organism (principal); N18.6 End stage renal disease; R57.9 Shock, unspecified; D70.9 Neutropenia, unspecified; E77.8 Other disorders of glycoprotein metabolism; D89.0 Polyclonal hypergammaglobulinemia; I07.1 Rheumatic tricuspid insufficiency; N10 Acute pyelonephritis; N39.0 Urinary tract infection, site not specified; M32.9 Systemic lupus erythematosus, unspecified; E88.09 Other disorders of plasma-protein metabolism, not elsewhere classified; R31.9 Hematuria, unspecified; M06.9 Rheumatoid arthritis, unspecified; Z79.899 Other long term (current) drug therapy; Z87.891 Personal history of nicotine dependence; G89.29 Other chronic pain; J44.9 Chronic obstructive pulmonary disease, unspecified; I25.10 Atherosclerotic heart disease of native coronary artery without angina pectoris; Z95.5 Presence of coronary angioplasty implant and graft; D63.8 Anemia in other chronic diseases classified elsewhere; E87.6 Hypokalemia; Z80.42 Family history of malignant neoplasm of prostate; Z80.1 Family history of malignant neoplasm of trachea, bronchus and lung
CPT/HCPCS: 36415; 71010; 71260; 74176; 78227; 80048; 80053; 80202; 81001; 82270; 82550; 82553; 82607; 82746; 82784; 83036; 83540; 83605; 83690; 83735; 83880; 84443; 84466; 84484; 85025; 85379; 85610; 85730; 87040; 87071; 87086; 87205; 93005; 93306; 96360; 96361; 96374; 96375; 99284; A9537; G0378; J0692; J0696; J1170; J2405; J2805; J2920; J3370; J7030; J7042; Q9967

== ENCOUNTER 2021-01-14 17:43 | Inpatient (IN) | payer MEDICARE ==
[~2021-01-14] VITALS: Ht 149.9 cm; Wt 53.1 kg
[~2021-01-14 17:43] MED LIST changes: +FLAGYL250 MG PO; +LEVAQUIN500 MG PO; +METOPROLOL TART25 MG PO; +NIFEDIPINE ER30 M1 PO; +NITROFURANTOIN100 MG PO; +ZOFRAN ODT4 MG PO
[2021-01-14] MEDS ORDERED: SODIUM CHLORIDE 0.9% 1000ML 1,000 ML IV STA ×2 (17:50→19:08)
[2021-01-14] MEDS ORDERED: KETOROLAC TROMETHAMINE 30 MG/ML VIAL IV STA (17:50)
[2021-01-14] MEDS ORDERED: ONDANSETRON HCL INJ 2MG/ML 2ML 2 MG/ML VIAL IV STA (17:50)
[2021-01-14 18:42] LABS: BASOPHILS # (AUTO) 0.1 (0.0-0.1); BASOPHILS % 0.7 % (0.0-1.0); EOSINOPHILS # (AUTO) 0.1 (0.0-0.4); EOSINOPHILS % 0.9 % (0.0-6.0); HEMATOCRIT 38.3 % (34.2-44.1); HEMOGLOBIN 11.9 g/dL (12.0-16.0); LYMPHOCYTES # (AUTO) 1.8 (1.0-3.2); LYMPHOCYTES % 26.2 % (18.0-39.1); MEAN CORPUSCULAR HEMOGLOBIN 30.6 pg (28-32); MEAN CORPUSCULAR HGB CONC 31.1 g/dL (31-35); MEAN CORPUSCULAR VOLUME 98.5 fL (81-99); MONOCYTES # (AUTO) 0.7 (0.2-0.8); MONOCYTES % 9.7 % (4.4-11.3); NEUTROPHILS # (AUTO) 4.3 (2.1-6.9); NEUTROPHILS % 61.9 % (38.7-80.0); PLATELET COUNT 276 x10e3/uL (140-360); RED BLOOD COUNT 3.89 x10e6/uL (3.6-5.1); RED CELL DISTRIBUTION WIDTH 12.5 % (11.7-14.4)
[2021-01-14 18:59] LABS: ALBUMIN 3.4 g/dL (3.5-5.0); ALBUMIN/GLOBULIN RATIO 0.7 (0.8-2.0); ANION GAP 19.5 mmol/L (8-16); CALCIUM 9.3 mg/dL (8.4-10.2); CREATININE, SERUM 2.59 mg/dL (0.57-1.11); POTASSIUM 4.5 mmol/L (3.5-5.1)
[2021-01-14 19:07] LABS: CREATINE KINASE MB 0.5 ng/mL (0-5.0)
[2021-01-14 19:38] LABS: CLARITY,URINE SL CLOUDY (CLEAR); COLOR,URINE STRAW (YELLOW); KETONES,URINE TRACE (NEGATIVE); LEUKOCYTE ESTERASE ,URINE NEGATIVE (NEGATIVE); NITRITE,URINE NEGATIVE (NEGATIVE); PROTEIN,URINE DIPSTICK >=300 (NEGATIVE); URINE UROBILINOGEN 0.2 mg/dL (0.2 - 1)
[2021-01-14 19:42] LABS: AMPHETAMINES SCREEN,URINE NEGATIVE (NEGATIVE); BENZODIAZEPINES SCREEN,URINE POSITIVE (NEGATIVE); PHENCYCLIDINE SCREEN,URINE NEGATIVE (NEGATIVE)
[2021-01-14 19:50] LABS: BACTERIA,URINE MODERATE /HPF; EPITHELIAL CELLS,URINE MODERATE /LPF; RBC,URINE 0-5 /HPF (0-5)
[2021-01-15] VITALS (10 sets, daily range): BP systolic 126–173; BP diastolic 81–98
[2021-01-15] MEDS ORDERED: AMLODIPINE BESY10 MG PO (01:01)
[2021-01-15] MEDS ORDERED: SOMA350 MG PO (01:03)
[2021-01-15] MEDS: ONDANSETRON HCL INJ 2MG/ML 2ML 2 MG/ML VIAL IV PRN ×4 (05:37→22:30)
[2021-01-15 06:33] LABS: BASOPHILS # (AUTO) 0.1 (0.0-0.1); BASOPHILS % 0.8 % (0.0-1.0); EOSINOPHILS # (AUTO) 0.1 (0.0-0.4); EOSINOPHILS % 1.1 % (0.0-6.0); HEMATOCRIT 35.5 % (34.2-44.1); HEMOGLOBIN 11.1 g/dL (12.0-16.0); LYMPHOCYTES # (AUTO) 1.9 (1.0-3.2); LYMPHOCYTES % 30.3 % (18.0-39.1); MEAN CORPUSCULAR HEMOGLOBIN 31.3 pg (28-32); MEAN CORPUSCULAR HGB CONC 31.3 g/dL (31-35); MONOCYTES # (AUTO) 0.7 (0.2-0.8); MONOCYTES % 11.8 % (4.4-11.3); NEUTROPHILS # (AUTO) 3.5 (2.1-6.9); NEUTROPHILS % 55.7 % (38.7-80.0); PLATELET COUNT 231 x10e3/uL (140-360); RED BLOOD COUNT 3.55 x10e6/uL (3.6-5.1); RED CELL DISTRIBUTION WIDTH 12.2 % (11.7-14.4)
[2021-01-15 07:51] LABS: ALBUMIN 2.8 g/dL (3.5-5.0); ALBUMIN/GLOBULIN RATIO 0.7 (0.8-2.0); ANION GAP 16.4 mmol/L (8-16); CALCIUM 8.6 mg/dL (8.4-10.2); CREATININE, SERUM 2.23 mg/dL (0.57-1.11); POTASSIUM 4.4 mmol/L (3.5-5.1)
[2021-01-15 08:19] LABS: CREATINE KINASE MB 0.8 ng/mL (0-5.0)
[2021-01-15 14:47] LABS: CREATINE KINASE MB 0.8 ng/mL (0-5.0)
[2021-01-15] MEDS ORDERED: TRAMADOL HCL 50 MG TAB PO PRN (15:00)
[2021-01-15] MEDS: SODIUM BICARBONATE 8.4% 75 ML in SODIUM CHLORIDE 0.45% 1,000 ML IV SCH (17:25)
[2021-01-15] MEDS ORDERED: TRAMADOL HCL 50 MG TAB PO SCH (18:00)
[2021-01-15 20:32] LABS: CREATINE KINASE MB 0.8 ng/mL (0-5.0)
[2021-01-16] VITALS (8 sets, daily range): BP systolic 120–165; BP diastolic 49–90
[2021-01-16] MEDS: ONDANSETRON HCL INJ 2MG/ML 2ML 2 MG/ML VIAL IV PRN ×2 (03:00→23:25)
[2021-01-16 04:53] LABS: BASOPHILS % 0.6 % (0.0-1.0); EOSINOPHILS # (AUTO) 0.1 (0.0-0.4); EOSINOPHILS % 1.2 % (0.0-6.0); HEMATOCRIT 32.3 % (34.2-44.1); HEMOGLOBIN 10.2 g/dL (12.0-16.0); LYMPHOCYTES # (AUTO) 1.8 (1.0-3.2); LYMPHOCYTES % 27.2 % (18.0-39.1); MEAN CORPUSCULAR HEMOGLOBIN 30.4 pg (28-32); MEAN CORPUSCULAR HGB CONC 31.6 g/dL (31-35); MEAN CORPUSCULAR VOLUME 96.1 fL (81-99); MONOCYTES # (AUTO) 0.8 (0.2-0.8); MONOCYTES % 12.6 % (4.4-11.3); NEUTROPHILS # (AUTO) 3.9 (2.1-6.9); NEUTROPHILS % 57.9 % (38.7-80.0); PLATELET COUNT 216 x10e3/uL (140-360); RED BLOOD COUNT 3.36 x10e6/uL (3.6-5.1)
[2021-01-16 05:13] LABS: ANION GAP 14.9 mmol/L (8-16); CALCIUM 8.4 mg/dL (8.4-10.2); CREATININE, SERUM 2.58 mg/dL (0.57-1.11); POTASSIUM 3.9 mmol/L (3.5-5.1)
[2021-01-16] MEDS: SODIUM BICARBONATE 8.4% 75 ML in SODIUM CHLORIDE 0.45% 1,000 ML IV SCH (08:02)
[2021-01-16] MEDS: METOPROLOL TARTRATE 25 MG TAB PO SCH (08:05)
[2021-01-16] MEDS: PREDNISONE 20 MG TAB PO SCH (08:05)
[2021-01-16] MEDS: AMLODIPINE BESYLATE 10 MG TAB PO SCH (08:05)
[2021-01-16] MEDS: FAMOTIDINE 20 MG TAB PO SCH (08:05)
[2021-01-16] MEDS ORDERED: PROMETHAZINE 12.5MG/ NACL 0.9% 12.5 MG/50 ML BAG IV ONE (08:45)
[2021-01-16] MEDS: SODIUM BICARBONATE 650 MG TAB PO SCH ×2 (09:45→16:00)
[2021-01-16 10:55] LABS: CLARITY,URINE CLEAR (CLEAR); COLOR,URINE YELLOW (YELLOW); LEUKOCYTE ESTERASE ,URINE NEGATIVE (NEGATIVE); NITRITE,URINE NEGATIVE (NEGATIVE)
[2021-01-16 10:56] LABS: EPITHELIAL CELLS,URINE FEW /LPF; KETONES,URINE NEGATIVE (NEGATIVE); PROTEIN,URINE DIPSTICK >=300 (NEGATIVE); URINE UROBILINOGEN 0.2 mg/dL (0.2 - 1)
[2021-01-16 11:08] LABS: BACTERIA,URINE MANY /HPF; RBC,URINE 21-50 /HPF (0-5); RENAL EPITHELIAL CELLS,URINE FEW
[2021-01-16 11:09] LABS: HYALINE CASTS 0-1 (0-1)
[2021-01-16 11:19] LABS: CREATININE,URINE RANDOM 55.45 mg/dL (47-110)
[2021-01-17] VITALS (9 sets, daily range): BP systolic 105–192; BP diastolic 58–89
[2021-01-17] MEDS ORDERED: PROMETHAZINE 25MG/ NS 50ML (IV) IV PRN (00:15)
[2021-01-17] MEDS ORDERED: HYDRALAZINE HCL 20 MG/ML VIAL IV PRN ×2 (00:15→12:15)
[2021-01-17] MEDS: PANTOPRAZOLE 40 MG 10ML VIAL IV SCH ×2 (01:50→12:36)
[2021-01-17] MEDS: METOCLOPRAMIDE HCL 10 MG/2ML VIAL IV SCH ×4 (02:20→18:38)
[2021-01-17 04:47] LABS: BASOPHILS # (AUTO) 0.1 (0.0-0.1); BASOPHILS % 0.8 % (0.0-1.0); EOSINOPHILS # (AUTO) 0.1 (0.0-0.4); EOSINOPHILS % 1.1 % (0.0-6.0); HEMOGLOBIN 11.3 g/dL (12.0-16.0); LYMPHOCYTES # (AUTO) 2.2 (1.0-3.2); LYMPHOCYTES % 30.3 % (18.0-39.1); MEAN CORPUSCULAR HEMOGLOBIN 30.9 pg (28-32); MEAN CORPUSCULAR HGB CONC 32.3 g/dL (31-35); MEAN CORPUSCULAR VOLUME 95.6 fL (81-99); MONOCYTES # (AUTO) 0.8 (0.2-0.8); MONOCYTES % 10.9 % (4.4-11.3); NEUTROPHILS # (AUTO) 4.2 (2.1-6.9); NEUTROPHILS % 56.8 % (38.7-80.0); PLATELET COUNT 245 x10e3/uL (140-360); RED BLOOD COUNT 3.66 x10e6/uL (3.6-5.1); RED CELL DISTRIBUTION WIDTH 11.9 % (11.7-14.4)
[2021-01-17 05:11] LABS: ANION GAP 14.7 mmol/L (8-16); CALCIUM 8.9 mg/dL (8.4-10.2); CREATININE, SERUM 2.52 mg/dL (0.57-1.11); MAGNESIUM 1.8 MG/DL (1.3-2.1); PHOSPHORUS 2.5 MG/DL (2.3-4.7); POTASSIUM 3.7 mmol/L (3.5-5.1)
[2021-01-17 05:28] LABS: % IRON SATURATION 17 % (15-50); IRON 50 ug/dL (50-170); TOTAL IRON BINDING CAPACITY 290 ug/dL (261-478); TRANSFERRIN 207 mg/dL (180-382)
[2021-01-17] MEDS: SODIUM BICARBONATE 650 MG TAB PO SCH ×2 (08:15→16:37)
[2021-01-17] MEDS: PREDNISONE 20 MG TAB PO SCH (08:15)
[2021-01-17] MEDS: FAMOTIDINE 20 MG TAB PO SCH (08:15)
[2021-01-17] MEDS: AMLODIPINE BESYLATE 10 MG TAB PO SCH (08:16)
[2021-01-17] MEDS: METOPROLOL TARTRATE 25 MG TAB PO SCH (08:16)
[2021-01-17] MEDS ORDERED: ACETAMINOPHEN 325 MG TAB PO PRN (12:15)
[2021-01-17 16:50] LABS: TOTAL PROTEIN 24HR, URINE 2803.3 mg/24hr (50-100); TOTAL PROTEIN, URINE 169.9 mg/dL (1-14)
[2021-01-17] MEDS: MELATONIN 5 MG TABLET PO PRN (22:20)
[2021-01-18] VITALS (8 sets, daily range): BP systolic 126–159; BP diastolic 66–84
[2021-01-18] MEDS: METOCLOPRAMIDE HCL 10 MG/2ML VIAL IV SCH ×4 (00:05→18:00)
[2021-01-18] MEDS: PANTOPRAZOLE 40 MG 10ML VIAL IV SCH ×2 (01:01→14:49)
[2021-01-18 04:48] LABS: BASOPHILS % 0.5 % (0.0-1.0); EOSINOPHILS % 0.5 % (0.0-6.0); HEMATOCRIT 33.7 % (34.2-44.1); HEMOGLOBIN 10.5 g/dL (12.0-16.0); LYMPHOCYTES # (AUTO) 1.9 (1.0-3.2); LYMPHOCYTES % 22.1 % (18.0-39.1); MEAN CORPUSCULAR HEMOGLOBIN 30.3 pg (28-32); MEAN CORPUSCULAR HGB CONC 31.2 g/dL (31-35); MEAN CORPUSCULAR VOLUME 97.4 fL (81-99); MONOCYTES # (AUTO) 0.9 (0.2-0.8); MONOCYTES % 10.6 % (4.4-11.3); NEUTROPHILS # (AUTO) 5.8 (2.1-6.9); NEUTROPHILS % 66.1 % (38.7-80.0); PLATELET COUNT 250 x10e3/uL (140-360); RED BLOOD COUNT 3.46 x10e6/uL (3.6-5.1); RED CELL DISTRIBUTION WIDTH 12.1 % (11.7-14.4)
[2021-01-18 05:08] LABS: ALBUMIN/GLOBULIN RATIO 0.8 (0.8-2.0); ANION GAP 15.3 mmol/L (8-16); CALCIUM 8.6 mg/dL (8.4-10.2); CREATININE, SERUM 2.99 mg/dL (0.57-1.11); POTASSIUM 4.3 mmol/L (3.5-5.1)
[2021-01-18] MEDS: SODIUM BICARBONATE 650 MG TAB PO SCH ×2 (08:12→17:00)
[2021-01-18] MEDS: METOPROLOL TARTRATE 25 MG TAB PO SCH (08:12)
[2021-01-18] MEDS: FAMOTIDINE 20 MG TAB PO SCH (08:12)
[2021-01-18] MEDS: AMLODIPINE BESYLATE 10 MG TAB PO SCH (08:12)
[2021-01-18] MEDS: PREDNISONE 20 MG TAB PO SCH (08:12)
[2021-01-18] MEDS ORDERED: PANTOPRAZOLE SO40 MG PO ×2 (08:26→08:32)
[2021-01-18] MEDS ORDERED: REGLAN10 MG PO ×2 (08:26→08:32)
[2021-01-18] MEDS ORDERED: METHYLPREDNISOLONE SOD SUCC 1,000 MG/8 ML VIAL IV SCH (09:00)
[2021-01-18 10:20] LABS: INR 0.91; PROTHROMBIN TIME 12.8 seconds (11.9-14.5)
[2021-01-18] MEDS: METHYLPREDNISOLONE SOD SUCC 500 MG in SODIUM CHLORIDE 0.9% 100 ML IV SCH (11:00)
[2021-01-19] VITALS (8 sets, daily range): BP systolic 128–174; BP diastolic 68–89
[2021-01-19] MEDS: METOCLOPRAMIDE HCL 10 MG/2ML VIAL IV SCH ×5 (00:45→23:56)
[2021-01-19] MEDS: MELATONIN 5 MG TABLET PO PRN (00:45)
[2021-01-19] MEDS: PANTOPRAZOLE 40 MG 10ML VIAL IV SCH ×2 (02:06→13:19)
[2021-01-19 06:09] LABS: BASOPHILS % 0.1 % (0.0-1.0); HEMATOCRIT 34.5 % (34.2-44.1); HEMOGLOBIN 10.9 g/dL (12.0-16.0); LYMPHOCYTES # (AUTO) 0.8 (1.0-3.2); LYMPHOCYTES % 7.2 % (18.0-39.1); MEAN CORPUSCULAR HEMOGLOBIN 30.5 pg (28-32); MEAN CORPUSCULAR HGB CONC 31.6 g/dL (31-35); MEAN CORPUSCULAR VOLUME 96.6 fL (81-99); MONOCYTES # (AUTO) 0.3 (0.2-0.8); MONOCYTES % 2.4 % (4.4-11.3); NEUTROPHILS # (AUTO) 9.8 (2.1-6.9); NEUTROPHILS % 89.7 % (38.7-80.0); PLATELET COUNT 251 x10e3/uL (140-360); RED BLOOD COUNT 3.57 x10e6/uL (3.6-5.1)
[2021-01-19 06:32] LABS: ALBUMIN 3.3 g/dL (3.5-5.0); ALBUMIN/GLOBULIN RATIO 0.8 (0.8-2.0); CREATININE, SERUM 2.74 mg/dL (0.57-1.11); MAGNESIUM 1.9 MG/DL (1.3-2.1); PHOSPHORUS 3.5 MG/DL (2.3-4.7)
[2021-01-19 06:36] LABS: CLARITY,URINE CLEAR (CLEAR); COLOR,URINE YELLOW (YELLOW); KETONES,URINE NEGATIVE (NEGATIVE); LEUKOCYTE ESTERASE ,URINE NEGATIVE (NEGATIVE); NITRITE,URINE NEGATIVE (NEGATIVE); PROTEIN,URINE DIPSTICK >=300 (NEGATIVE); URINE UROBILINOGEN 0.2 mg/dL (0.2 - 1)
[2021-01-19 06:48] LABS: BACTERIA,URINE FEW /HPF; EPITHELIAL CELLS,URINE FEW /LPF; WBC,URINE (MAN) 0-5 /HPF (0-5)
[2021-01-19 08:09] LABS: ANION GAP 18.7 mmol/L (8-16); POTASSIUM 4.7 mmol/L (3.5-5.1)
[2021-01-19] MEDS: METOPROLOL TARTRATE 25 MG TAB PO SCH (08:43)
[2021-01-19] MEDS: AMLODIPINE BESYLATE 10 MG TAB PO SCH (08:44)
[2021-01-19] MEDS: SODIUM BICARBONATE 650 MG TAB PO SCH ×2 (08:44→16:27)
[2021-01-19] MEDS: FAMOTIDINE 20 MG TAB PO SCH (08:44)
[2021-01-19] MEDS: METHYLPREDNISOLONE SOD SUCC 500 MG in SODIUM CHLORIDE 0.9% 100 ML IV SCH (10:14)
[2021-01-20] VITALS (7 sets, daily range): BP systolic 138–182; BP diastolic 57–94
[2021-01-20] MEDS: MELATONIN 5 MG TABLET PO PRN ×2 (00:23→21:23)
[2021-01-20] MEDS: PANTOPRAZOLE 40 MG 10ML VIAL IV SCH ×2 (01:48→13:23)
[2021-01-20] MEDS: METOCLOPRAMIDE HCL 10 MG/2ML VIAL IV SCH ×4 (06:04→23:48)
[2021-01-20] MEDS: SODIUM BICARBONATE 650 MG TAB PO SCH ×2 (11:01→17:26)
[2021-01-20] MEDS: METOPROLOL TARTRATE 25 MG TAB PO SCH (11:01)
[2021-01-20] MEDS: FAMOTIDINE 20 MG TAB PO SCH (11:01)
[2021-01-20] MEDS: AMLODIPINE BESYLATE 10 MG TAB PO SCH (11:01)
[2021-01-20] MEDS: METHYLPREDNISOLONE SOD SUCC 500 MG in SODIUM CHLORIDE 0.9% 100 ML IV SCH (13:23)
[2021-01-21] VITALS: BP 135/77
[2021-01-21] MEDS: PANTOPRAZOLE 40 MG 10ML VIAL IV SCH (02:43)
[2021-01-21 04:00] VITALS: BP 143/77
[2021-01-21] MEDS: METOCLOPRAMIDE HCL 10 MG/2ML VIAL IV SCH (05:48)
[2021-01-21 06:06] LABS: BASOPHILS % 0.1 % (0.0-1.0); HEMATOCRIT 35.2 % (34.2-44.1); HEMOGLOBIN 11.4 g/dL (12.0-16.0); LYMPHOCYTES # (AUTO) 0.8 (1.0-3.2); MEAN CORPUSCULAR HEMOGLOBIN 31.1 pg (28-32); MEAN CORPUSCULAR HGB CONC 32.4 g/dL (31-35); MEAN CORPUSCULAR VOLUME 95.9 fL (81-99); MONOCYTES # (AUTO) 0.4 (0.2-0.8); MONOCYTES % 2.6 % (4.4-11.3); NEUTROPHILS # (AUTO) 14.3 (2.1-6.9); NEUTROPHILS % 90.9 % (38.7-80.0); PLATELET COUNT 296 x10e3/uL (140-360); RED BLOOD COUNT 3.67 x10e6/uL (3.6-5.1); RED CELL DISTRIBUTION WIDTH 12.1 % (11.7-14.4)
[2021-01-21 06:36] LABS: ALBUMIN 3.2 g/dL (3.5-5.0); ALBUMIN/GLOBULIN RATIO 0.8 (0.8-2.0); ANION GAP 17.6 mmol/L (8-16); CALCIUM 8.3 mg/dL (8.4-10.2); CREATININE, SERUM 2.39 mg/dL (0.57-1.11); POTASSIUM 4.6 mmol/L (3.5-5.1)
[2021-01-21 07:57] VITALS: BP 120/79
[2021-01-21 08:09] LABS: LYMPHOCYTES % (MANUAL) 8 % (19-48); MONOCYTES % (MANUAL) 2 % (3.4-9.0); NEUTROPHILS % (MANUAL) 88 % (40-74); PLATELET ESTIMATE ADEQUATE; PLATELET MORPHOLOGY COMMENT NORMAL; RBC MORPHOLOGY COMMENT NORMAL
[2021-01-21] MEDS: FAMOTIDINE 20 MG TAB PO SCH (08:31)
[2021-01-21] MEDS: SODIUM BICARBONATE 650 MG TAB PO SCH (08:31)
[2021-01-21] MEDS: AMLODIPINE BESYLATE 10 MG TAB PO SCH (08:31)
[2021-01-21] MEDS: METOPROLOL TARTRATE 25 MG TAB PO SCH (08:31)
[2021-01-21 09:00] VITALS: BP 120/79
[2021-01-21] MEDS ORDERED: CELLCEPT500 MG PO (09:18)
[2021-01-21] MEDS ORDERED: MYCOPHENOLATE MOFETIL 250 MG CAP PO SCH (09:45)
== END 2021-01-21 10:53 | disposition home or self-care (01) | DRG 546 ==
LOC: ER 18:20 → ERHOLD 21:29 → IMCU 23:39 → OBSVTOIN 01-16 07:58
PROVIDERS: ADMIT Internal Medicine; ATTEND Internal Medicine
DX: M32.14 Glomerular disease in systemic lupus erythematosus (principal); N17.9 Acute kidney failure, unspecified; E87.2 Acidosis; N18.4 Chronic kidney disease, stage 4 (severe); R80.9 Proteinuria, unspecified; D64.9 Anemia, unspecified; I12.9 Hypertensive chronic kidney disease with stage 1 through stage 4 chronic kidney disease, or unspecified chronic kidney disease; D63.8 Anemia in other chronic diseases classified elsewhere; F17.210 Nicotine dependence, cigarettes, uncomplicated; K21.9 Gastro-esophageal reflux disease without esophagitis; G89.4 Chronic pain syndrome; Z20.822 Contact with and (suspected) exposure to COVID-19; Z88.5 Allergy status to narcotic agent; Z82.49 Family history of ischemic heart disease and other diseases of the circulatory system; Z80.1 Family history of malignant neoplasm of trachea, bronchus and lung; Z83.3 Family history of diabetes mellitus
CPT/HCPCS: 36415; 74176; 76770; 80048; 80053; 80307; 81001; 81050; 82550; 82553; 82570; 82607; 82746; 83540; 83605; 83690; 83735; 84100; 84156; 84300; 84466; 84484; 85025; 85045; 85610; 86021; 86160; 86225; 87040; 87086; 93005; 96360; 99284; G0378; J0360; J1885; J2405; J2550; J2765; J2930; J7030; J7050; J7512; U0002

== ENCOUNTER 2021-06-18 21:30 | Emergency (ER) | payer MEDICARE, OTHER ==
[~2021-06-18] VITALS: Ht 149.9 cm; Wt 53.1 kg
[~2021-06-18 21:30] MED LIST changes: +AMLODIPINE BESY10 MG PO; +CELLCEPT500 MG PO; +PANTOPRAZOLE SO40 MG PO; +REGLAN10 MG PO
[2021-06-18] MEDS ORDERED: KETOROLAC TROMETHAMINE 60 MG/2 ML VIAL IM ONE (22:15)
[2021-06-19] MEDS ORDERED: ULTRAM 50MG50 MG PO (00:03)
[2021-06-19 07:22] VITALS: BP 132/65
== END 2021-06-19 01:00 | disposition home or self-care (01) ==
LOC: ER 22:11
DX: R07.89 Other chest pain (principal); M25.511 Pain in right shoulder; I10 Essential (primary) hypertension; M32.9 Systemic lupus erythematosus, unspecified; D64.9 Anemia, unspecified; M06.9 Rheumatoid arthritis, unspecified
CPT/HCPCS: 71046; 73030; 93005; 99284; J1885

== ENCOUNTER 2021-07-08 17:34 | Inpatient (IN) | payer MEDICARE ==
[~2021-07-08] VITALS: Ht 152.4 cm; Wt 69.9 kg
[2021-07-08 18:55] LABS: BASOPHILS # (AUTO) 0.1 (0.0-0.1); EOSINOPHILS # (AUTO) 0.1 (0.0-0.4); EOSINOPHILS % 0.6 % (0.0-6.0); HEMATOCRIT 39.2 % (34.2-44.1); HEMOGLOBIN 12.4 g/dL (12.0-16.0); LYMPHOCYTES # (AUTO) 2.1 (1.0-3.2); LYMPHOCYTES % 24.2 % (18.0-39.1); MEAN CORPUSCULAR HEMOGLOBIN 30.6 pg (28-32); MEAN CORPUSCULAR HGB CONC 31.6 g/dL (31-35); MEAN CORPUSCULAR VOLUME 96.8 fL (81-99); MONOCYTES # (AUTO) 1.1 (0.2-0.8); MONOCYTES % 12.1 % (4.4-11.3); NEUTROPHILS # (AUTO) 5.4 (2.1-6.9); NEUTROPHILS % 61.3 % (38.7-80.0); PLATELET COUNT 317 x10e3/uL (140-360); RED BLOOD COUNT 4.05 x10e6/uL (3.6-5.1); RED CELL DISTRIBUTION WIDTH 11.8 % (11.7-14.4)
[2021-07-08] MEDS ORDERED: METOPROLOL TARTRATE INJ 1 MG/ML VIAL IV ONE (19:00)
[2021-07-08] MEDS ORDERED: METOPROLOL TARTRATE INJ 1 MG/ML VIAL ONE (19:02)
[2021-07-08 19:18] LABS: ALBUMIN 3.9 g/dL (3.5-5.0); ALBUMIN/GLOBULIN RATIO 0.9 (0.8-2.0); ANION GAP 21.6 mmol/L (8-16); CALCIUM 10.4 mg/dL (8.4-10.2); CREATININE, SERUM 4.37 mg/dL (0.57-1.11); POTASSIUM 4.6 mmol/L (3.5-5.1)
[2021-07-08 19:24] LABS: CREATINE KINASE MB 0.5 ng/mL (0-5.0)
[2021-07-08] MEDS ORDERED: SODIUM BICARBONATE 8.4% 50 ML VIAL IV STA (19:43)
[2021-07-08] MEDS ORDERED: FUROSEMIDE INJ 100 MG in SODIUM CHLORIDE 0.9% 100 ML 90 ML IV SCH (19:45)
[2021-07-08] MEDS ORDERED: METHYLPREDNISOLONE SOD SUCC 125 MG/2ML VIAL IV ONE (20:00)
[2021-07-08] MEDS: NICARDIPINE 20MG/200ML PREMIX 200 ML IV SCH (21:24)
[2021-07-08 21:53] LABS: CLARITY,URINE SL CLOUDY (CLEAR); COLOR,URINE YELLOW (YELLOW); KETONES,URINE TRACE (NEGATIVE); LEUKOCYTE ESTERASE ,URINE NEGATIVE (NEGATIVE); NITRITE,URINE NEGATIVE (NEGATIVE); PROTEIN,URINE DIPSTICK >=300 (NEGATIVE); URINE UROBILINOGEN 0.2 mg/dL (0.2 - 1)
[2021-07-08 22:01] LABS: AMORPHOUS SEDIMENT,URINE FEW (FEW); BACTERIA,URINE MODERATE /HPF; EPITHELIAL CELLS,URINE MANY /LPF
[2021-07-09] VITALS (17 sets, daily range): BP systolic 121–183; BP diastolic 63–95
[2021-07-09 00:30] LABS: CREATINE KINASE MB 0.5 ng/mL (0-5.0)
[2021-07-09 06:17] LABS: BASOPHILS % 0.3 % (0.0-1.0); HEMATOCRIT 33.9 % (34.2-44.1); HEMOGLOBIN 11.1 g/dL (12.0-16.0); LYMPHOCYTES # (AUTO) 0.4 (1.0-3.2); LYMPHOCYTES % 7.1 % (18.0-39.1); MEAN CORPUSCULAR HEMOGLOBIN 31.3 pg (28-32); MEAN CORPUSCULAR HGB CONC 32.7 g/dL (31-35); MEAN CORPUSCULAR VOLUME 95.5 fL (81-99); MONOCYTES % 0.7 % (4.4-11.3); NEUTROPHILS # (AUTO) 5.4 (2.1-6.9); NEUTROPHILS % 91.2 % (38.7-80.0); PLATELET COUNT 308 x10e3/uL (140-360); RED BLOOD COUNT 3.55 x10e6/uL (3.6-5.1); RED CELL DISTRIBUTION WIDTH 11.7 % (11.7-14.4)
[2021-07-09 06:42] LABS: ALBUMIN 3.4 g/dL (3.5-5.0); ALBUMIN/GLOBULIN RATIO 0.9 (0.8-2.0); ANION GAP 18.1 mmol/L (8-16); CALCIUM 9.2 mg/dL (8.4-10.2); CREATININE, SERUM 4.49 mg/dL (0.57-1.11); MAGNESIUM 1.9 MG/DL (1.3-2.1); POTASSIUM 4.1 mmol/L (3.5-5.1)
[2021-07-09 06:58] LABS: PHOSPHORUS 3.5 MG/DL (2.3-4.7)
[2021-07-09] MEDS ORDERED: METHYLPREDNISOLONE SOD SUCC 1,000 MG/8 ML VIAL IV SCH (10:30)
[2021-07-09] MEDS: NIFEDIPINE CR 30 MG TAB PO SCH (11:24)
[2021-07-09] MEDS: CARVEDILOL 12.5 MG TAB PO SCH ×2 (11:24→17:43)
[2021-07-09 11:48] LABS: INR 1.03; PROTHROMBIN TIME 13.7 seconds (11.9-14.5)
[2021-07-09] MEDS: SODIUM CHLORIDE 0.9% IV SCH (12:28)
[2021-07-09] MEDS: METHYLPREDNISOLONE SOD SUCC IV SCH (12:28)
[2021-07-09 12:39] LABS: CREATINE KINASE MB 0.6 ng/mL (0-5.0)
[2021-07-09] MEDS: NICARDIPINE 20MG/200ML PREMIX 200 ML IV SCH (15:24)
[2021-07-09] MEDS: CEFTRIAXONE 1 GM in SODIUM CHLORIDE 0.9% 50ML 50 ML IV SCH (15:27)
[2021-07-09] MEDS: SODIUM BICARBONATE 650 MG TAB PO SCH (17:43)
[2021-07-09] MEDS: MYCOPHENOLATE MOFETIL 250 MG CAP PO SCH (17:49)
[2021-07-10] VITALS (17 sets, daily range): BP systolic 89–147; BP diastolic 48–73
[2021-07-10 04:56] LABS: BASOPHILS % 0.2 % (0.0-1.0); HEMATOCRIT 30.5 % (34.2-44.1); HEMOGLOBIN 9.8 g/dL (12.0-16.0); LYMPHOCYTES # (AUTO) 0.6 (1.0-3.2); LYMPHOCYTES % 3.3 % (18.0-39.1); MEAN CORPUSCULAR HEMOGLOBIN 30.4 pg (28-32); MEAN CORPUSCULAR HGB CONC 32.1 g/dL (31-35); MEAN CORPUSCULAR VOLUME 94.7 fL (81-99); MONOCYTES # (AUTO) 0.4 (0.2-0.8); MONOCYTES % 2.2 % (4.4-11.3); NEUTROPHILS % 93.5 % (38.7-80.0); PLATELET COUNT 283 x10e3/uL (140-360); RED BLOOD COUNT 3.22 x10e6/uL (3.6-5.1); RED CELL DISTRIBUTION WIDTH 11.6 % (11.7-14.4)
[2021-07-10 05:14] LABS: ALBUMIN 3.2 g/dL (3.5-5.0); ALBUMIN/GLOBULIN RATIO 0.9 (0.8-2.0); ANION GAP 19.6 mmol/L (8-16); CALCIUM 8.6 mg/dL (8.4-10.2); CREATININE, SERUM 4.35 mg/dL (0.57-1.11); MAGNESIUM 1.7 MG/DL (1.3-2.1); PHOSPHORUS 3.1 MG/DL (2.3-4.7); POTASSIUM 3.6 mmol/L (3.5-5.1)
[2021-07-10 05:32] LABS: CHOL/HDL RATIO 3.3 (3.0-3.6)
[2021-07-10 05:52] LABS: THYROID STIMULATING HORMONE 0.125 uIU/mL (0.350-4.940)
[2021-07-10] MEDS: PANTOPRAZOLE SOD 40 MG TABEC PO SCH (08:13)
[2021-07-10] MEDS: MYCOPHENOLATE MOFETIL 250 MG CAP PO SCH ×2 (08:14→17:08)
[2021-07-10] MEDS: CEFTRIAXONE 1 GM in SODIUM CHLORIDE 0.9% 50ML 50 ML IV SCH (08:14)
[2021-07-10] MEDS: CARVEDILOL 12.5 MG TAB PO SCH ×2 (08:14→17:08)
[2021-07-10] MEDS: SODIUM BICARBONATE 650 MG TAB PO SCH ×3 (08:14→20:04)
[2021-07-10] MEDS: NIFEDIPINE CR 30 MG TAB PO SCH (08:14)
[2021-07-10 08:20] LABS: LYMPHOCYTES % (MANUAL) 5 % (19-48); MONOCYTES % (MANUAL) 2 % (3.4-9.0); NEUTROPHILS % (MANUAL) 93 % (40-74); PLATELET ESTIMATE ADEQUATE
[2021-07-10 08:21] LABS: PLATELET MORPHOLOGY COMMENT FEW LARGE; RBC MORPHOLOGY COMMENT NORMAL
[2021-07-10] MEDS: METHYLPREDNISOLONE SOD SUCC IV SCH (09:39)
[2021-07-10] MEDS: SODIUM CHLORIDE 0.9% IV SCH (09:39)
[2021-07-10] MEDS ORDERED: TRAMADOL HCL 50 MG TAB PO PRN (11:45)
[2021-07-10 13:39] LABS: CLARITY,URINE CLEAR (CLEAR); COLOR,URINE YELLOW (YELLOW); KETONES,URINE NEGATIVE (NEGATIVE); LEUKOCYTE ESTERASE ,URINE NEGATIVE (NEGATIVE); NITRITE,URINE NEGATIVE (NEGATIVE); PROTEIN,URINE DIPSTICK >=300 (NEGATIVE); URINE UROBILINOGEN 0.2 mg/dL (0.2 - 1)
[2021-07-10 14:06] LABS: AMORPHOUS SEDIMENT,URINE FEW (FEW); BACTERIA,URINE FEW /HPF; RBC,URINE 0-5 /HPF (0-5)
[2021-07-10 14:17] LABS: CREATININE,URINE RANDOM 86.68 mg/dL (47-110); TOTAL PROTEIN, URINE 172.2 mg/dL (1-14)
[2021-07-11] VITALS: BP 110/65
[2021-07-11 04:00] VITALS: BP 122/62
[2021-07-11 05:27] LABS: BASOPHILS % 0.1 % (0.0-1.0); HEMATOCRIT 29.9 % (34.2-44.1); HEMOGLOBIN 9.6 g/dL (12.0-16.0); LYMPHOCYTES # (AUTO) 0.5 (1.0-3.2); LYMPHOCYTES % 2.7 % (18.0-39.1); MEAN CORPUSCULAR HEMOGLOBIN 30.9 pg (28-32); MEAN CORPUSCULAR HGB CONC 32.1 g/dL (31-35); MEAN CORPUSCULAR VOLUME 96.1 fL (81-99); MONOCYTES # (AUTO) 0.6 (0.2-0.8); MONOCYTES % 3.3 % (4.4-11.3); NEUTROPHILS # (AUTO) 17.4 (2.1-6.9); NEUTROPHILS % 92.1 % (38.7-80.0); PLATELET COUNT 275 x10e3/uL (140-360); RED BLOOD COUNT 3.11 x10e6/uL (3.6-5.1); RED CELL DISTRIBUTION WIDTH 11.9 % (11.7-14.4)
[2021-07-11 05:52] LABS: ALBUMIN 3.2 g/dL (3.5-5.0); ALBUMIN/GLOBULIN RATIO 0.9 (0.8-2.0); ANION GAP 19.5 mmol/L (8-16); CALCIUM 8.1 mg/dL (8.4-10.2); CREATININE, SERUM 4.52 mg/dL (0.57-1.11); POTASSIUM 3.5 mmol/L (3.5-5.1)
[2021-07-11] MEDS: PANTOPRAZOLE SOD 40 MG TABEC PO SCH (07:30)
[2021-07-11 08:49] VITALS: BP 132/62
[2021-07-11] MEDS: MYCOPHENOLATE MOFETIL 250 MG CAP PO SCH ×2 (08:53→16:15)
[2021-07-11] MEDS: CARVEDILOL 12.5 MG TAB PO SCH ×2 (08:53→16:15)
[2021-07-11] MEDS: NIFEDIPINE CR 30 MG TAB PO SCH (08:54)
[2021-07-11] MEDS: SODIUM BICARBONATE 650 MG TAB PO SCH ×3 (08:54→20:25)
[2021-07-11] MEDS ORDERED: PREDNISONE 20 MG TAB PO SCH (09:00)
[2021-07-11] MEDS: CEFTRIAXONE 1 GM in SODIUM CHLORIDE 0.9% 50ML 50 ML IV SCH (09:05)
[2021-07-11] MEDS ORDERED: SODIUM CHLORIDE 0.9% 250ML 250 ML ONE (09:08)
[2021-07-11] MEDS ORDERED: NITROGLYCERIN 0.4 MG SUBL SL PRN (10:45)
[2021-07-11 12:03] VITALS: BP 133/68
[2021-07-11 16:16] VITALS: BP 121/56
[2021-07-11 19:35] VITALS: BP 131/61
[2021-07-11] MEDS ORDERED: TEMAZEPAM 7.5 MG CAP PO PRN (21:30)
[2021-07-12] VITALS (8 sets, daily range): BP systolic 127–160; BP diastolic 60–76
[2021-07-12 04:56] LABS: BASOPHILS % 0.1 % (0.0-1.0); HEMATOCRIT 29.6 % (34.2-44.1); HEMOGLOBIN 9.4 g/dL (12.0-16.0); LYMPHOCYTES # (AUTO) 0.7 (1.0-3.2); LYMPHOCYTES % 4.5 % (18.0-39.1); MEAN CORPUSCULAR HEMOGLOBIN 30.7 pg (28-32); MEAN CORPUSCULAR HGB CONC 31.8 g/dL (31-35); MEAN CORPUSCULAR VOLUME 96.7 fL (81-99); MONOCYTES # (AUTO) 0.9 (0.2-0.8); MONOCYTES % 5.7 % (4.4-11.3); NEUTROPHILS # (AUTO) 13.7 (2.1-6.9); PLATELET COUNT 253 x10e3/uL (140-360); RED BLOOD COUNT 3.06 x10e6/uL (3.6-5.1); RED CELL DISTRIBUTION WIDTH 11.8 % (11.7-14.4)
[2021-07-12 05:25] LABS: ALBUMIN/GLOBULIN RATIO 0.9 (0.8-2.0); CALCIUM 7.6 mg/dL (8.4-10.2); CREATININE, SERUM 3.85 mg/dL (0.57-1.11)
[2021-07-12] MEDS: PANTOPRAZOLE SOD 40 MG TABEC PO SCH (07:30)
[2021-07-12] MEDS ORDERED: ALBUTEROL/IPRATROPIUM 3 ML NEB NEB PRN (08:00)
[2021-07-12] MEDS ORDERED: POTASSIUM CHLORIDE 20 MEQ TAB CR PO STA ×2 (08:15→08:43)
[2021-07-12] MEDS ORDERED: POTASSIUM CHLORIDE 20 MEQ TAB CR PO ONE (08:30)
[2021-07-12] MEDS ORDERED: PREDNISONE 20 MG TAB PO SCH (09:00)
[2021-07-12] MEDS: CEFTRIAXONE 1 GM in SODIUM CHLORIDE 0.9% 50ML 50 ML IV SCH (09:06)
[2021-07-12] MEDS: CARVEDILOL 12.5 MG TAB PO SCH (09:06)
[2021-07-12] MEDS: MYCOPHENOLATE MOFETIL 250 MG CAP PO SCH ×2 (09:06→17:51)
[2021-07-12] MEDS: SODIUM BICARBONATE 650 MG TAB PO SCH ×3 (09:07→20:17)
[2021-07-12] MEDS: NIFEDIPINE CR 30 MG TAB PO SCH (09:07)
[2021-07-12] MEDS ORDERED: MAGNESIUM SULFATE 2GM/50ML 50 ML IV ONE (10:15)
[2021-07-12] MEDS ORDERED: RANOLAZINE 500 MG TABSR PO SCH (17:00)
[2021-07-12] MEDS ORDERED: NIFEDIPINE ER30 M1 PO (19:25)
[2021-07-12] MEDS ORDERED: SODIUM BICARBO650 MG PO (19:25)
[2021-07-12] MEDS ORDERED: PREDNISONE20 MG PO (19:25)
[2021-07-12] MEDS ORDERED: RANEXA500 MG PO (19:25)
[2021-07-12] MEDS ORDERED: COREG12.5 MG PO (19:25)
[2021-07-12] MEDS ORDERED: CARVEDILOL 12.5 MG TAB PO SCH (21:00)
[2021-07-13 00:19] VITALS: BP 136/64
[2021-07-13 01:25] VITALS: BP 136/64
[2021-07-13] MEDS ORDERED: KEFLEX125 MG/5 M PO (04:20)
[2021-07-13 05:18] VITALS: BP 152/76
[2021-07-13 07:48] LABS: ANION GAP 19.8 mmol/L (8-16); CALCIUM 7.9 mg/dL (8.4-10.2); CREATININE, SERUM 3.18 mg/dL (0.57-1.11); MAGNESIUM 2.3 MG/DL (1.3-2.1); PHOSPHORUS 3.1 MG/DL (2.3-4.7); POTASSIUM 3.8 mmol/L (3.5-5.1)
[2021-07-13 08:00] VITALS: BP 152/76
[2021-07-13 08:21] VITALS: BP 139/73
== END 2021-07-13 08:40 | disposition home or self-care (01) | DRG 872 ==
LOC: ER 18:01 → ERHOLD 20:12 → ICU 07-09 11:16 → MED/SURG3 07-10 13:18
PROVIDERS: ADMIT Internal Medicine; ATTEND Internal Medicine
DX: A41.9 Sepsis, unspecified organism (principal); N17.9 Acute kidney failure, unspecified; E87.2 Acidosis; N39.0 Urinary tract infection, site not specified; N18.4 Chronic kidney disease, stage 4 (severe); M32.9 Systemic lupus erythematosus, unspecified; M06.9 Rheumatoid arthritis, unspecified; I25.2 Old myocardial infarction; I16.0 Hypertensive urgency; M32.14 Glomerular disease in systemic lupus erythematosus; D63.8 Anemia in other chronic diseases classified elsewhere; I13.10 Hypertensive heart and chronic kidney disease without heart failure, with stage 1 through stage 4 chronic kidney disease, or unspecified chronic kidney disease; I25.10 Atherosclerotic heart disease of native coronary artery without angina pectoris; Z95.5 Presence of coronary angioplasty implant and graft; B95.7 Other staphylococcus as the cause of diseases classified elsewhere; E87.6 Hypokalemia; I50.9 Heart failure, unspecified; Z20.822 Contact with and (suspected) exposure to COVID-19
CPT/HCPCS: 36415; 71045; 76770; 80048; 80053; 80061; 81001; 82550; 82553; 82570; 83036; 83605; 83735; 83880; 84100; 84156; 84443; 84484; 85025; 85610; 86021; 86160; 86225; 87040; 87071; 87205; 93005; 93306; 94640; 99285; J0696; J1940; J2930; J3475; J7050; J7512; U0002